=== PATIENT | male | born 1995 ===

== ENCOUNTER 2024-02-16 20:02 | Emergency (ER) | payer OTHER, BC ==
[~2024-02-16] VITALS: Ht 180.3 cm; Wt 117.9 kg
[~2024-02-16 20:02] MED LIST: HYDACE5 PO; ONDA4 PO; ONDA4ODT MM
[2024-02-16] MEDS ORDERED: Acetaminophen 500 MG Tab PO ONE (20:25)
[2024-02-16] MEDS ORDERED: HYDROmorphone HCl/Pf 1MG SYR IV ONE (22:20)
[2024-02-16 22:28] VITALS: BP 149/89
[2024-02-16] MEDS ORDERED: RX Prepack 2 Sprays Naloxone HCL 4 MG/SPRAY UD ONE (22:40)
[2024-02-16] MEDS ORDERED: Ketorolac Tromethamine 30mg Vial IV ONE (22:40)
[2024-02-16] MEDS ORDERED: Diphth,Pertuss(Acell),Tet Vac 0.5 ML VIAL IM ONE (22:40)
[2024-02-16] MEDS ORDERED: RX Prepack 6 Tabs Oxycodone 5mg UD ONE (22:40)
[2024-02-16] MEDS ORDERED: Ibuprofen600 MG PO (22:52)
[2024-02-16] MEDS ORDERED: HYDR1TAB94 PO (22:52)
[2024-02-16] MEDS ORDERED: CEPH500 PO (22:52)
== END 2024-02-16 23:06 | disposition home or self-care (01) ==
LOC: ER 20:02
DX: S42.351A Displaced comminuted fracture of shaft of humerus, right arm, initial encounter for closed fracture (principal); S01.81XA Laceration without foreign body of other part of head, initial encounter; Z23 Encounter for immunization; V89.2XXA Person injured in unspecified motor-vehicle accident, traffic, initial encounter
CPT/HCPCS: 24505; 70450; 72125; 73060; 90471; 90715; 96374-59; 96375-59; 99284-25; A9270; J1171; J1885

== ENCOUNTER 2024-12-14 22:08 | Emergency (ER) | payer OTHER ==
[~2024-12-14] VITALS: Ht 175.3 cm; Wt 113.4 kg
[~2024-12-14 22:08] MED LIST changes: +CEPH500 PO; +HYDR1TAB94 PO; +Ibuprofen600 MG PO
[2024-12-14 22:11] VITALS: BP 162/92
[2024-12-14] MEDS ORDERED: Ketorolac Tromethamine 15mg Vial IM ONE (23:15)
== END 2024-12-14 23:30 | disposition home or self-care (01) ==
LOC: ER 22:08
DX: M79.621 Pain in right upper arm (principal); Z96.7 Presence of other bone and tendon implants; Z91.81 History of falling
CPT/HCPCS: 73060; 99283-25; A9270